=== PATIENT | female | born 1965 | race Caucasian/White ===

== ENCOUNTER → 2017-10-04 | Outpatient (CLI) | payer OTHER | END | disposition home or self-care (01) | LOC: KCIC 13:27 | DX: M47.896 Other spondylosis, lumbar region (principal); M77.31 Calcaneal spur, right foot; M46.1 Sacroiliitis, not elsewhere classified; M47.816 Spondylosis without myelopathy or radiculopathy, lumbar region; M79.672 Pain in left foot; M79.641 Pain in right hand | CPT/HCPCS: 72110; 72202; 73130; 73630 ==

== ENCOUNTER → 2017-11-07 | Outpatient (CLI) | payer OTHER | END | disposition home or self-care (01) | LOC: KCIC MAMMO 11:13 | DX: Z12.31 Encounter for screening mammogram for malignant neoplasm of breast (principal); Z13.820 Encounter for screening for osteoporosis; M81.0 Age-related osteoporosis without current pathological fracture; J44.9 Chronic obstructive pulmonary disease, unspecified; Z87.891 Personal history of nicotine dependence | CPT/HCPCS: 71046; 77067; 77080 ==

== ENCOUNTER → 2018-04-23 | Outpatient (CLI) | payer OTHER ==
--- NOTE | 2018-04-23 14:35 | KCIC ---
EXAM: Bilateral hips, 2 views. HISTORY: Sacroiliitis. COMPARISON: None. FINDINGS: Frontal and frog-leg views of both hips are obtained. There is no fracture, dislocation or subluxation. The femoral heads are normal in configuration. There is right sacroiliac joint subchondral sclerosis. IMPRESSION: 1. No acute osseous finding. 2. Right sacroiliac joint subchondral sclerosis. Electronically signed by: Lin Mathias MD (04/23/2018 2:32 PM) [place] [id number]
--- NOTE | 2018-04-23 14:35 | KCIC ---
EXAM: Bilateral hips, 2 views. HISTORY: Sacroiliitis. COMPARISON: None. FINDINGS: Frontal and frog-leg views of both hips are obtained. There is no fracture, dislocation or subluxation. The femoral heads are normal in configuration. There is right sacroiliac joint subchondral sclerosis. IMPRESSION: 1. No acute osseous finding. 2. Right sacroiliac joint subchondral sclerosis. Electronically signed by: Lin Mathias MD (04/23/2018 2:32 PM) [place] [id number]
--- NOTE | 2018-04-23 14:54 | KCIC ---
MRI Lumbar Spine without contrast History: Bilateral hip pain and lumbar radiculitis, chronic low back pain, left lower extremity numbness Technique: Multiplanar, multi sequential noncontrast MR imaging was performed of the lumbar spine. Contrast: None Comparison: None Findings: Lumbar vertebral body stature and AP alignment are maintained. There is very mild disc desiccation at L3-4 and L4-5, intervertebral disc spaces relatively preserved. Conus terminates at L1-2. There is no significant marrow edema. L3-L4: There is mild facet degenerative change and buckling of the ligamentum flavum. Neural foramina and spinal canal are adequate. There is negligible disc osteophyte complex inferior right neural foramen. L4-L5: There is mild facet degenerative change. Neural foramina and spinal canal are adequate. L5-S1: There is tiny posterior annular tear. There is negligible posterior bulge. Spinal canal is adequate. Neural foramina are adequate. There is mild bilateral facet degenerative change. Impression: 1. There is no significant lumbar spinal stenosis or neural foramina compromise. There is mild facet degenerative change. Electronically signed by: Filiberto Mayo MD (04/23/2018 2:51 PM) [facility]-[id number]
--- NOTE | 2018-04-23 15:55 | KCIC ---
MR of the left foot HISTORY: Pain with weightbearing at the heel. Left lateral foot numbness. Left mid foot and heel pain for 2 years. TECHNIQUE: Routine multiplanar sequences are obtained. FINDINGS: Acute subchondral marrow edema at the proximal second metatarsal and intermediate cuneiform. Associated loss of fatty T1 marrow signal as well. Minimal fluid within the joint. The loss of T1 fatty marrow signal is greater than what would be expected from just primary osteoarthritis, therefore nondisplaced fracture or stress injuries are possible. Milder subchondral marrow edema at the proximal third metatarsal. Minimal marrow edema at the medial navicular bone. Lisfranc ligament complex is intact. No significant tarsometatarsal joint subluxation. Mild thickening of the plantar aponeurosis with mild surrounding edema, compatible with plantar fasciitis. No measurable defect or rupture. Mild edema within the pre-Achilles fat and muscle. The Achilles tendon is intact. Subtalar joints are patent. Tarsal sinus intact. No significant joint effusion. No evidence of acute tendon rupture or significant tendon sheath fluid. IMPRESSION: 1. Acute subchondral marrow edema at the second tarsometatarsal joint, could indicate nondisplaced fractures or stress injury. Degenerative etiology could be considered, particularly if patient is at risk for peripheral neuropathy. 2. Mild plantar fasciitis. Electronically signed by: Vlad Foster MD (04/23/2018 3:52 PM) [facility]-[id number]
== END | disposition home or self-care (01) ==
LOC: KCIC MRI 13:45
PROVIDERS: ATTEND Anesthesiology Pain Medicine
DX: R60.9 Edema, unspecified (principal); M47.894 Other spondylosis, thoracic region; M72.2 Plantar fascial fibromatosis; M54.16 Radiculopathy, lumbar region; M46.1 Sacroiliitis, not elsewhere classified; M54.5 Low back pain; G89.29 Other chronic pain; Z90.710 Acquired absence of both cervix and uterus
CPT/HCPCS: 72148; 73502; 73718

== ENCOUNTER → 2020-04-01 | Outpatient (CLI) | payer OTHER ==
--- NOTE | 2020-04-01 17:15 | KCIC ---
Indications: Right buttock and groin pain. Sacroiliitis. Right hip pain. 3 view study of the sacroiliac joints: No ankylosis is seen. No erosive arthropathy is evident. No acute fracture or diastases is seen. IMPRESSION: Unremarkable study. AP view of the pelvis and frog-leg view of both hips: No significant joint space narrowing of either hip joint is seen. There is a small spur of the right femoral head. No significant arthritic change of the left hip joint is seen. No acute fracture or dislocation or lytic process is evident. Old healed fractures of the right obturator ring are seen. IMPRESSION: Small degenerative spur of the right femoral head. Five-view lumbar spine series: No compression fracture or discitis or lytic process or anterolisthesis is seen. 4 lumbar type vertebrae are evident. Transverse processes are intact. No spondylolysis is seen. Mild degenerative facet arthropathy of L4-S1 is seen. There is mild degenerative disc space narrowing and endplate spurring at L1-L2 and L2-L3. IMPRESSION: No acute compression fracture. Mild degenerative lumbar spondylosis. Electronically signed by: Monster Mitchell MD (04/01/2020 5:13 PM) [id number]
== END | disposition home or self-care (01) ==
LOC: KCIC 14:00
PROVIDERS: ATTEND Internal Medicine
DX: M47.817 Spondylosis without myelopathy or radiculopathy, lumbosacral region (principal); M46.1 Sacroiliitis, not elsewhere classified; M16.11 Unilateral primary osteoarthritis, right hip
CPT/HCPCS: 72110; 72202; 73521

== ENCOUNTER → 2020-11-18 | Outpatient (CLI) | payer OTHER ==
--- NOTE | 2020-11-18 15:33 | KCIC ---
3 view study of both shoulders Clinical indications: Bilateral anterior shoulder pain. Left shoulder: No acute fracture or dislocation or lytic process is seen. No AC joint separation is s een. No significant arthritic change of the AC joint or glenohumeral joint is seen. Right shoulder: No acute fracture or dislocation or lytic process is seen. No AC joint separation is seen. No significant arthritic change of the AC joint or glenohumeral joint is seen. IMPRESSION: No significant osseous abnormality of either shoulder is seen. Electronically signed by: Monster Mitchell MD (11/18/2020 3:31 PM) [id number]
--- NOTE | 2020-11-18 15:42 | KCIC ---
3 view study of both feet Clinical indications: Bilateral foot pain Right foot: No acute fracture or dislocation or lytic process or periosteal reaction is seen. There i s mild degenerative spurring and joint space during of the lateral aspect of the first metatarsal pha langeal joint. No erosive arthropathy is evident. In the lateral view, there is mild degenerative spu rring of the dorsal aspect of the first tarsal metatarsal joint and the dorsal aspect of the talus at the talonavicular joint. No plantar spur of the calcaneus is seen. Left foot: No acute fracture or dislocation or lytic process or periosteal reaction is seen. Tiny spu r of the lateral aspect of the first metatarsal phalangeal joint is seen without joint space narrowin g. No erosive arthropathy is seen. There is a moderate-sized plantar spur of the calcaneus. 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 Electronically signed by: Monster Mitchell MD (11/18/2020 3:40 PM) [id number]
== END ==
LOC: KCIC 14:12
PROVIDERS: ATTEND Anesthesiology Pain Medicine
DX: M19.072 Primary osteoarthritis, left ankle and foot (principal); M19.071 Primary osteoarthritis, right ankle and foot; M25.511 Pain in right shoulder; M25.512 Pain in left shoulder
CPT/HCPCS: 73630-50